=== PATIENT | female | born 1950 | race Caucasian/White ===

== ENCOUNTER 2016-04-25 17:52 | Emergency (ER) | payer OTHER ==
[2016-04-25 16:55] LABS: BASOPHILS 0.2 %; BASOPHILS ABSOLUTE 0.03 10/3/uL (0.0-0.16); EOSINOPHILS 4.3 %; EOSINOPHILS ABSOLUTE 0.52 10/3/uL (0.0-0.53); HEMATOCRIT 41.5 % (36.0-48.0); HEMOGLOBIN 14.2 g/dL (12.0-16.0); IMMATURE GRANULOCYTES 0.5 %; IMMATURE GRANULOCYTES ABSOLUTE 0.06 10/3/uL (0.0-0.11); LYMPHOCYTES 20.8 %; LYMPHOCYTES ABSOLUTE 2.51 10/3/uL (0.67-4.30); MEAN CORPUS HGB CONC 34.2 g/dL (32.0-36.0); MEAN CORPUSCULAR HEMOGLOB 31.1 pg (26.0-34.0); MEAN PLATELET VOLUME 10.6 fL (9.2-13.0); MONOCYTES 13.9 %; MONOCYTES ABSOLUTE 1.67 10/3/uL (0.21-1.20); NEUTROPHILS 60.3 %; NEUTROPHILS ABSOLUTE 7.25 10/3/uL (2.02-8.40); PLATELET COUNT 231 10/3/uL (150-400); RED CELL COUNT 4.57 10/6/uL (4.0-5.6)
[2016-04-25 16:56] LABS: MANUAL DIFF NO %; MEAN CORPUSCULAR VOLUME 90.8 fL (80-100)
[2016-04-25 17:21] LABS: A/G RATIO 0.9 (0.7-1.9); ALBUMIN 3.7 G/DL (3.5-5.0); CALCIUM, SERUM 9.5 MG/DL (8.5-10.4); CHLORIDE, SERUM 94 MMOL/L (96-112); CO2 (CARBON DIOXIDE) 26 MMOL/L (24-34); GLOBULIN 3.9 G/DL (2.5-4.1); POTASSIUM, SERUM 3.8 MMOL/L (3.5-5.3); SGOT(AST) 29 U/L (5-40); SGPT(ALT) 25 U/L (5-65); SODIUM, SERUM 133 MMOL/L (135-148); TOTAL PROTEIN 7.6 G/DL (6.0-8.5)
[2016-04-25 17:24] LABS: ALKALINE PHOSPHATASE 203 U/L (45-117); BUN (BLOOD UREA NITROGEN) 80 MG/DL (6-23); CREATININE 3.23 MG/DL (0.55-1.02); GFR AFRICAN AMERICAN 16 ML/MIN (>=60); GFR NON AFRICAN AMERICAN 14 ML/MIN (>=60); GLUCOSE, SERUM 93 MG/DL (60-99); TOTAL BILIRUBIN 1.7 MG/DL (0-1.2)
[~2016-04-25 17:52] MED LIST: ASAB PO; BROVANA15 MCG INH; C1 PO; COLCRYS0.6 MG PO; COUMADIN3 MG PO; COUMADIN4 MG PO; DEMA20 PO; DIGITEK0.125 MG PO; DSS PO; FESO4 PO; FLONASE NAS; FOLIC PO; HALF81 PO; HUMI PO; HYCODAN1 M1 PO; KDUR20 PO; KLOR-CON 1010 MEQ PO; KLOR-CON M1010 MEQ PO; KLOR-CON M2020 MEQ PO; KLOR-CON20 MEQ PO; L20 PO; L40 PO; LEVAQUIN750 MG PO; LOP100 PO; LOP25 PO; LOP50 PO; LORT7 PO; MEDROLPAK4 PO; MUCINEX600 MG PO; MULTIVITAMI1 PO; NEUR300 PO; NITROQUICK0.4 MG SL; NO HOME MEDS; OMNICEF300 PO; P10 PO; P20 PO; PCET PO; PEP20 PO; PRAVACHOL40 MG PO; PRILO PO; PROAIR HFA INH; PROTONIX PO; PROVENTSOL INH; PULRESP1 INH; REVATIO20 PO; SPIRO25 PO; STERAPDS12 PO; SYMBICORT 160/41 INH INH; TESSALON200 MG PO; VITAMIN B-121000 MC1 PO; Z100 PO; ZAROX2.5B PO; ZESTORETIC PO; ZESTORETIC1 TA1 PO; ZITH250 PO
== END 2016-04-25 19:11 | disposition home or self-care (01) ==
LOC: ER 17:52
PROVIDERS: Physician Assistant
DX: M54.42 Lumbago with sciatica, left side (principal); I10 Essential (primary) hypertension; Z86.73 Personal history of transient ischemic attack (TIA), and cerebral infarction without residual deficits; Z88.8 Allergy status to other drugs, medicaments and biological substances; Z79.899 Other long term (current) drug therapy; Z79.01 Long term (current) use of anticoagulants
CPT/HCPCS: 80053; 81001; 85025; 93005; 96374; 99284

== ENCOUNTER 2016-06-09 18:05 | Inpatient (IN) | payer OTHER ==
--- NOTE | ~2016-06-09 | CN ---
Consultation Report [facility] [address] [place]. [address] NAME: JOSEFA VALERIO : 46 STATUS : ADM IN PAT#: [id number] AGE: 65 ADM/REG DATE : 06/09/16 MR#: [id number] REPORT SERV DATE: 06/11/16 DICTATED BY: ALYSIA MACK DATE: 06/10/16 REPORT STATUS : Draft TRANSCRIBED BY: MODL DATE: 06/10/16 NEPHROLOGY CONSULTATION DATE OF CONSULTATION: 06/10/2016 REASON FOR CONSULTATION: Chronic kidney disease. HISTORY OF PRESENT ILLNESS: Mrs. Valerio is a very pleasant 65-year-old white female with past medical history of chronic kidney disease stage [address] Marquez in our practice. She has pulmonary hypertension as well as cardiac shunt. She was undergoing cardiac catheterization to evaluate this and actually had a stroke 2 years ago. Since that time, she has been on anticoagulation. She had an echocardiogram under the care of Dr. Davis and was found to have a large pericardial effusion without evidence of tamponade. She has been admitted for pericardial window placement which is being planned for tomorrow. She has chronic shortness of breath and edema requiring high-dose diuretics. She has had a persistent cough that has not responded to any kind of therapy recently. Baseline creatinine range is 2.5 to 3.0. She was admitted with a BUN and creatinine of 99 and 3.0. Her most recent potassium was 4.3. PAST MEDICAL HISTORY: 1. Chronic kidney disease, stage 4, followed by Dr. Oskar Marquez. 2. Atrial fibrillation. 3. Chronic edema. 4. Severe pulmonary hypertension. 5. Prior CVA. 6. Hypertension. 7. Depression. PAST SURGICAL HISTORY: 1. Coronary arteriogram. 2. Hysterectomy. 3. Cholecystectomy. 4. Hip replacement. 5. Tonsillectomy. 6. Appendectomy. FAMILY HISTORY: Significant for hypertension, myocardial infarction, dementia, breast cancer. ALLERGIES: ACETAMINOPHEN AND SILK TAPE. SOCIAL HISTORY: She does not smoke cigarettes or drink alcohol. REVIEW OF SYSTEMS: Consultation Report [place] [id number] [facility] [place]. [address] NAME: JOSEFA VALERIO : 46 STATUS : ADM IN PAT#: [id number] AGE: 65 ADM/REG DATE : 06/09/16 MR#: [id number] REPORT SERV DATE: 06/11/16 DICTATED BY: ALYSIA MACK DATE: 06/10/16 REPORT STATUS : Draft TRANSCRIBED BY: PEPE DATE: 06/10/16 All systems reviewed and negative excluding those mentioned and highlighted in history of present illness. HOME MEDICATIONS: 1. Albuterol two puffs p.r.n. 2. Allopurinol 100 mg b.i.d. 3. Symbicort two puffs daily. 4. Metolazone 2.5 mg, Sunday, Sunday, and Sunday. 5. Lopressor 50 mg b.i.d. 6. Potassium chloride 20 mEq every morning. 7. Potassium chloride 40 mEq at bedtime. 8. Pravastatin 40 mg daily. 9. Spironolactone 25 mg daily. 10.Torsemide 60 mg twice a day. 11.Coumadin 3 mg at bedtime. PHYSICAL EXAMINATION: VITAL SIGNS: Blood pressure 119/58, temperature 96.8, pulse 78, respiratory rate 18, oxygen saturation 91%. GENERAL: This is a chronically ill, elderly white female, resting comfortably, in no acute distress. HEENT: Normocephalic, atraumatic. Oropharynx clear. No exudate. NECK: Supple. No JVD. No thyromegaly. No carotid bruits. Trachea midline. No stridor. CARDIOVASCULAR: Regular rate and rhythm. S1, S2 without rubs or gallops. Soft systolic ejection murmur. Irregular rhythm. RESPIRATORY: Coarse breath sounds. No wheeze, rhonchi, tachypnea, or accessory muscles in use. GI: Abdomen soft, nontender, nondistended. No hepatosplenomegaly appreciated. EXTREMITIES: No cyanosis, clubbing, or edema. Distal pulses 2+ symmetrically intact. SKIN: No rash or breakdown. Normal turgor. NEUROLOGIC: Cranial nerves II through XII grossly intact. Motor sensory examinations within normal limits. LABS AND DIAGNOSTIC DATA: Urinalysis shows specific gravity 1.009, pH 7.0. Serum potassium 4.3. Magnesium 1.9. INR 1.5. Sodium 131, potassium 3.0, chloride 90, bicarb 26, BUN 99, creatinine 3.03, glucose 115. ASSESSMENT: 1. Chronic kidney disease stage 4, slightly above baseline with high BUN to creatinine ratio-may be prerenal. 2. Chronic hyponatremia. 3. Severe pulmonary hypertension. 4. Atrial septal defect, unable to be surgically closed. 5. Large pericardial effusion. Consultation Report [address] [place]. [address] NAME: JOSEFA VALERIO : 46 STATUS : ADM IN PAT#: [id number] AGE: 65 ADM/REG DATE : 06/09/16 MR#: [id number] REPORT SERV DATE: 06/11/16 DICTATED BY: ALYSIA MACK DATE: 06/10/16 REPORT STATUS : Draft TRANSCRIBED BY: PEPE DATE: 06/10/16 6. Subacute cough? related to effusion. 7. Hypertension. PLAN: 1. Cardiothoracic surgery is planning on pericardial window tomorrow. 2. She appears somewhat dry with high BUN to creatinine ratio. We will place her diuretics temporarily on hold perioperatively. 3. Check labs in the morning. 4. Group to follow. Thank you for this consultation. STEFANIA/PEPE Alysia Mack M.D. / [id number] CC: Yumiko Bradshaw N.P.
--- NOTE | ~2016-06-09 | OP ---
Record Of Operation [facility] [address] [place]. [address] NAME: JOSEFA MARTINEZ : 46 STATUS : ADM IN [facility]#: [id number] AGE: 65 ADM/REG DATE : 06/09/16 MR#: [id number] REPORT SERV DATE: 06/11/16 DICTATED BY: HUMPHREY MONTGOMERY DATE: 06/11/16 REPORT STATUS : Draft TRANSCRIBED BY: MODL DATE: 06/11/16 DATE OF PROCEDURE: 06/11/2016 PREOPERATIVE DIAGNOSIS: Large pericardial effusion, unknown etiology. POSTOPERATIVE DIAGNOSIS: Large pericardial effusion, unknown etiology, with 700 mL of serous fluid in the pericardial space. OPERATIVE PROCEDURE: Subxiphoid drainage of pericardial effusion with pericardial biopsy. OPERATIVE SURGEON: Humphrey Montgomery M.D. ANESTHESIA: General endotracheal anesthesia, AA. CHEST TUBES PLACED: A 36-Haitian right angle chest tube in the pericardial space. OPERATIVE FINDINGS: The patient had 700 mL of serous pericardial fluid with no sign of physiologic tamponade. There were no other abnormalities noted. DESCRIPTION OF PROCEDURE: The patient was taken to the operating room and placed in the supine position. Anesthesia was obtained. The patient was prepped and draped in the usual fashion. Incision was made over the xiphoid process. The linea alba was divided. The xiphoid process was excised. The pericardium was identified. Pericardium was opened. 700 mL of serous fluid was aspirated. This was sent for cytology as well as microbiology. Pericardial biopsy was taken and sent for permanent pathology. The space was irrigated with antibiotic saline. No other pathology was noted. The fluid was clear and nonbloody. No infection was noted. A 36-Haitian right angle chest tube was placed in the pericardial space. The linea alba was approximated with running #1 Stratafix suture, the subcutaneous tissues were closed with running 2-0 Stratafix suture, and the skin was approximated with running 3-0 Stratafix suture. Sterile dressings were applied. The patient tolerated the procedure well and was extubated in the operating room and taken to recovery in stable condition. LETI/PEPE Humphrey Montgomery M.D. / [id number] CC: Yumiko Bradshaw N.P.
--- NOTE | ~2016-06-09 | HP ---
History And Physical [id number] [place]. [address] NAME: JOSEFA MARTINEZ : 46 STATUS : ADM IN [facility]#: [id number] AGE: 65 ADM/REG DATE : 06/09/16 MR#: [id number] REPORT SERV DATE: 06/10/16 DICTATED BY: KRISTINE BRIGHT DATE: 06/10/16 REPORT STATUS : Draft TRANSCRIBED BY: MODClark DATE: 06/10/16 DATE OF ADMISSION: 06/09/2016 HISTORY OF PRESENT ILLNESS: This 65-year-old white female, ex-smoker (quit in 1984) was admitted with a large pericardial effusion noted on her echocardiogram. Back in 2016, she was admitted and had a moderate effusion at that time. This lady has pulmonary hypertension and during a cardiac catheterization to evaluate a shunt disorder (questionable PFO versus VSD), she developed a stroke requiring clot extraction. She was since been on warfarin therapy with an INR of 3.7 on admission. She is chronically short of breath and has occasional edema. She states that, of late she had an upper respiratory tract infection with increased cough and runny nose, etc. She is not known to be diabetic, but is hypertensive. MEDICATIONS: At home have included albuterol, allopurinol, Symbicort, metolazone, metoprolol, potassium, pravastatin, spironolactone, torsemide, and her warfarin. ALLERGIES: SHE IS INTOLERANT TO HYMENOPTERA STINGS, AND ACETAMINOPHEN WELL SILK TAPE. FAMILY HISTORY: Positive for myocardial infarction. PREVIOUS OPERATIONS: Include hip surgeries, cholecystectomy, tonsillectomy, appendectomy, and partial hysterectomy. SOCIAL HISTORY: Her family is with her at this time including great grandchild. She is not using tobacco or alcohol. Echocardiogram ordered by Dr. Davis (her primary parts salesman) recently showed large pericardial effusion with normal ejection fraction, but with pulmonary hypertension in the 60 mmHg range. No shunt was reported. She sees Dr. Marquez, as her artillery specialist with chronic renal insufficiency. Her BUN and creatinine are 99 and 3.03 mg percent respectively this admission. She has chronic atrial fibrillation as her rhythm chronically. There is no angina pectoris, syncope, near syncope, new TIA, or new stroke symptoms. REVIEW OF SYSTEMS: Otherwise, all negative. PHYSICAL EXAMINATION: VITAL SIGNS: Blood pressure is 110/60. HEENT: Head is ruborous and somewhat puffy, but no periorbital edema seen. Eyes are PERRLA. Nose had no epistaxis. SKIN: Clear of ulcerations. NECK: Supple. CHEST: Remarkably clear. HEART: Had an S1, S2 prabhakar and I hear no S3 gallop. There is a near holosystolic grade 1/6 systolic murmur heard at the lower left sternal border. There is no pericardial rubs History And Physical [address] [place]. [address] NAME: JOSEFA MARTINEZ : 46 STATUS : ADM IN [facility]#: [id number] AGE: 65 ADM/REG DATE : 06/09/16 MR#: [id number] REPORT SERV DATE: 06/10/16 DICTATED BY: KRISTINE BRIGHT DATE: 06/10/16 REPORT STATUS : Draft TRANSCRIBED BY: MODL DATE: 06/10/16 heard. ABDOMEN: A bit overweight. EXTREMITIES: Had no clubbing, edema, or cyanosis. NEUROLOGIC: Intact. She is oriented to time, place, and person. CLINICAL IMPRESSION: 1. Large pericardial effusion with no palpable paradox. 2. Pulmonary hypertension - family reports shunt reversal and pulmonary hypertension discovered on a cardiac catheterization at [place] two years ago, followed by a stroke requiring clot extraction. 3. Atrial fibrillation. 4. History of hypertension. 5. Overweight. 6. Chronic renal insufficiency - severe. RECOMMENDATIONS: 1. Thoracic surgery has been consulted. 2. Warfarin is being reversed such that the pericardial surgery/window can be done. 3. She will need to be back on anticoagulants after pericardial surgery is completed. 4. Dr. Davis to follow her when he returns to call. Home medications are continued except for the warfarin. RB/PEPE Kristine Bright M.D. / [id number] CC: Yumiko Bradshaw N.P.
--- NOTE | ~2016-06-09 | DS ---
Discharge Summary [facility] [address] [facility] [place]. [address] NAME: JOSEFA MARTINEZ : 46 STATUS : DIS IN PAT#: [id number] AGE: 65 ADM/REG DATE : 06/09/16 MR#: [id number] REPORT SERV DATE: 06/23/16 DICTATED BY: HUMPHREY ALLISON DATE: 06/22/16 REPORT STATUS : Draft TRANSCRIBED BY: MODClark DATE: 06/22/16 Data Collection from hospitalization DISCHARGE DIAGNOSES: 1. Large pericardial effusion of unknown etiology with 700 mL serous fluid in the pericardial space. 2. Hypertension. 3. Diabetes mellitus. 4. History of renal insufficiency. 5. Chronic obstructive pulmonary disease. 6. Former tobacco use. CONSULTATIONS: 1. Dawit Bright M.D. 2. Alysia Diaz M.D. PROCEDURES PERFORMED: Subxiphoid drainage of pericardial effusion with pericardial biopsy on 06/11/2016. PATHOLOGY: Pericardial fluid "effusion" aspiration (smear, ThinPrep, and cell block) - no malignant cells identified, no significant acute inflammation. Pericardium biopsy - benign pericardial tissue, no malignancy or significant acute inflammation. MEDICATIONS: ProAir two puffs via inhaler as needed; Zyloprim 100 mg twice a day; Symbicort two puffs via inhaler daily as needed; [place] 10/325 half to one tablet every four hours as needed; Zaroxolyn 2.5 mg on Mondays, Wednesdays, and Fridays; Lopressor 50 mg twice a day; [place] 20 mEq every morning and 40 mEq at bedtime; Pravachol 40 mg daily; Aldactone 25 mg daily; Demadex 60 mg twice a day; ascorbic acid 1000 mg twice a day, and Coumadin 3 mg at bedtime. CONDITION AT DISCHARGE: Stable. DISPOSITION: The patient was discharged home on a low-sodium, low-cholesterol, cardiac diet with activities as instructed. She would follow up with Andres Rodríguez on 06/15/2016 and 06/20/2016. She would follow up with Dr. Teo Daivs on 06/28/2016. She would follow up at [facility] for INR check on 06/16/2016. HOSPITAL COURSE: This is a 65-year-old female who is an ex-smoker who presented with a large pericardial effusion noted on her echocardiogram. In 2016, she had been admitted and had a moderate effusion at that time. This patient has pulmonary hypertension and during a cardiac catheterization to evaluate a shunt disorder, she developed a stroke requiring clot extraction. She had since been on warfarin therapy with an INR level of 3.7. She is chronically short of breath and has occasional edema. She said that of late she had an upper respiratory tract infection with increasing cough and runny nose, etc. She was not known to be a diabetic diet, but is hypertensive. She was admitted to the hospital at this time for further evaluation and treatment. Upon admission, warfarin was being reversed, such that the pericardial surgery/window could Discharge Summary [place] [id number] [facility]. [address] NAME: JOSEFA MARTINEZ : 46 STATUS : DIS IN PAT#: [id number] AGE: 65 ADM/REG DATE : 06/09/16 MR#: [id number] REPORT SERV DATE: 06/23/16 DICTATED BY: HUMPHREY ALLISON DATE: 06/22/16 REPORT STATUS : Draft TRANSCRIBED BY: PEPE DATE: 06/22/16 be performed. She would need to be back on anticoagulant after pericardial surgery was completed. The following day, the patient was seen by Dr. Alysia Diaz regarding chronic kidney disease. Plans were being made for pericardial window placement to be performed. Baseline creatinine ranges 2.5 and 3.0. She was admitted at this time with a BUN and creatinine of 99 and 3.0. Her most recent potassium was 4.3. She also has chronic hyponatremia. She appeared somewhat dry. Diuretics were placed on hold temporarily. Labs would be checked the following morning. The patient was seen by Dr. Dawit Bright. The patient has chronic atrial fibrillation as her rhythm chronically. The patient has a large pericardial effusion with no palpable paradox. She has severe chronic renal insufficiency. Plans were being made to proceed with surgical intervention. On 06/11/2016, she was taken to the operating room where she underwent the above-mentioned procedure. She tolerated this well, and there were no complications. Postoperatively, she was sore. Coumadin was given. Blood cultures were negative. On postop day #1, she said she was feeling better. She was alert and cooperative. Discharge planning was performed. Creatinine level was 2.46. She had no shortness of breath. On 06/13/2016, she had some pain with coughing. Her breathing was better. Creatinine was back to baseline at 2.59. Chest tube was removed. Discharge instructions were given. Due to her improved and stable condition, she was discharged home with the above-stated instructions. Information collected by: Madelaine Vargas I submit the above information as my discharge summary. STEPHANY/PEPE Humphrey Allison M.D. / [id number] CC: Yumiko Bradshaw N.P. Robert Berglund, M.D. Lindsay C Crawford, M.D.
--- NOTE | ~2016-06-09 | CN ---
Consultation Report [place] [id number] [facility] [place]. [address] NAME: JOSEFA MARTINEZ : 46 STATUS : [facility] [id number] AGE: 65 ADM/REG DATE : 06/09/16 MR#: [id number] REPORT SERV DATE: 06/11/16 DICTATED BY: HUMPHREY ALLISON DATE: 06/11/16 REPORT STATUS : Draft TRANSCRIBED BY: MODL DATE: 06/11/16 DATE OF CONSULTATION: 06/11/2016 PERTINENT HISTORY: The patient is a 65-year-old female with known history of cardiac dysrhythmias as well as renal insufficiency who presented to the hospital with shortness of breath. CT scan of the chest demonstrated pericardial fluid. Echocardiogram demonstrated pericardial fluid with no definite sign of tamponade. Cardiac consultation was obtained for drainage of pericardial fluid. PAST MEDICAL HISTORY: Significant for no previous open cardiac or thoracic surgery. She has history of renal insufficiency, hypertension, COPD, and diabetes mellitus. SOCIAL HISTORY: Negative for tobacco and ethanol use. FAMILY HISTORY: Noncontributory. REVIEW OF SYSTEMS: Significant only for the shortness of breath and increased fatigability. She denied any angina and denied any neurologic symptoms. PHYSICAL EXAMINATION: VITAL SIGNS: The patient is afebrile. Blood pressure 140/70, heart rate was 80. She is in no acute distress. CONSTITUTIONALLY: She is well developed and well nourished. HEENT: Showed her sclerae to be clear. NECK: Showed no bruits. RESPIRATORY: Showed breath sounds bilaterally without wheezes, rales, or rhonchi. CARDIAC: Showed what appeared to be a regular rhythm with no obvious murmur. Distant heart sounds. GI: Showed abdomen is soft and nontender, without masses. VASCULAR: Showed full pulses. SKIN: Showed no rash. NEUROLOGIC: Intact. PSYCHIATRIC: Intact. LABORATORY DATA: The echocardiogram demonstrated large pericardial effusion. No loculation evident. IMPRESSION: At this time is pericardial effusion with no signs of tamponade, but worsening symptoms of shortness of breath. The plan is to proceed with subxiphoid drainage of pericardial effusion, send fluid off for cytology as well as culture and also send pericardial biopsy off. Consultation Report [place] [id number] [facility] [place]. [address] NAME: JOSEFA MARTINEZ : 46 STATUS : ADM IN PAT#: [id number] AGE: 65 ADM/REG DATE : 06/09/16 MR#: [id number] REPORT SERV DATE: 06/11/16 DICTATED BY: HUMPHREY ALLISON DATE: 06/11/16 REPORT STATUS : Draft TRANSCRIBED BY: PEPE DATE: 06/11/16 LETI/PEPE Humphrey Allison M.D. / [id number] CC: Yumiko Bradshaw N.P.
[2016-06-09 20:15] LABS: WBC (NOT ORDERED) (RFLEX) 0 (0-5)
[2016-06-09 20:25] LABS: ASCORBIC ACID (UR NOT ORDER) NEG (NEG); BILIRUBIN, URINE NEGATIVE (NEG); ER URINALYSIS TAT 0 Hrs 13 Mins; KETONE, URINE NEGATIVE (NEG); LEUKOCYTE ESTERASE(NOT OR NEG (NEG); NITRITE (URINE) NEG (NEG)
[2016-06-09 21:13] LABS: BASOPHILS 0.1 %; BASOPHILS ABSOLUTE 0.01 10/3/uL (0.0-0.16); EOSINOPHILS 1.1 %; EOSINOPHILS ABSOLUTE 0.16 10/3/uL (0.0-0.53); ER CBC TAT 0 Hrs 05 Mins; HEMATOCRIT 43.2 % (36.0-48.0); HEMOGLOBIN 14.8 g/dL (12.0-16.0); IMMATURE GRANULOCYTES 0.4 %; IMMATURE GRANULOCYTES ABSOLUTE 0.05 10/3/uL (0.0-0.11); LYMPHOCYTES ABSOLUTE 1.83 10/3/uL (0.67-4.30); MANUAL DIFF NO %; MEAN CORPUS HGB CONC 34.3 g/dL (32.0-36.0); MEAN CORPUSCULAR HEMOGLOB 31.6 pg (26.0-34.0); MEAN CORPUSCULAR VOLUME 92.3 fL (80-100); MEAN PLATELET VOLUME 9.7 fL (9.2-13.0); MONOCYTES 13.1 %; MONOCYTES ABSOLUTE 1.84 10/3/uL (0.21-1.20); NEUTROPHILS 72.3 %; PLATELET COUNT 209 10/3/uL (150-400); RBC DISTRIBUTION WIDTH 15.8 % (12.0-16.0); RED CELL COUNT 4.68 10/6/uL (4.0-5.6); WHITE BLOOD CELLS 14.1 10/3/uL (4.5-10.5)
[2016-06-09 21:29] LABS: BUN (BLOOD UREA NITROGEN) 99 MG/DL (6-23); CALCIUM, SERUM 10.4 MG/DL (8.5-10.4); CHEST PAIN PROFILE TAT 0 Hrs 21 Mins; CHLORIDE, SERUM 92 MMOL/L (96-112); CO2 (CARBON DIOXIDE) 26 MMOL/L (24-34); CREATININE 3.03 MG/DL (0.55-1.02); GFR AFRICAN AMERICAN 18 ML/MIN (>=60); GFR NON AFRICAN AMERICAN 15 ML/MIN (>=60); GLUCOSE, SERUM 115 MG/DL (60-99); SODIUM, SERUM 131 MMOL/L (135-148); TROPONIN I 0.07 NG/ML (<0.05)
[2016-06-09 21:55] LABS: INTERNATIONAL NORMAL RATI 3.1 UNITS (-); PARTIAL THROMBO TIME 40.5 SEC (22.5-37.2)
[2016-06-09] MEDS ORDERED: LOP50 PO (22:04)
[2016-06-09] MEDS ORDERED: COUMADIN3 MG PO (22:05)
[2016-06-09] MEDS ORDERED: Z100 PO (22:05)
[2016-06-09] MEDS ORDERED: PROAIR HFA INH (22:05)
[2016-06-09] MEDS ORDERED: PRAVACHOL40 MG PO (22:05)
[2016-06-09] MEDS ORDERED: DEMA20 PO (22:06)
[2016-06-09] MEDS ORDERED: ZAROX2.5B PO (22:06)
[2016-06-09] MEDS ORDERED: KDUR20 PO ×2 (22:07)
[2016-06-09] MEDS ORDERED: SPIRO25 PO (22:07)
[2016-06-09] MEDS ORDERED: SYMBICORT 160/41 INH INH (22:11)
[2016-06-10 12:55] LABS: INTERNATIONAL NORMAL RATI 1.5 UNITS (-)
[2016-06-10 13:00] LABS: PROTIME (NOT ORD) 18.1 SEC (12.0-14.5)
[2016-06-10 18:39] LABS: POTASSIUM, SERUM 4.3 MMOL/L (3.5-5.3)
[2016-06-10 21:58] LABS: ASCORBIC ACID (UR NOT ORDER) NEG (NEG); BILIRUBIN, URINE NEGATIVE (NEG); KETONE, URINE NEGATIVE (NEG); LEUKOCYTE ESTERASE(NOT OR TRACE (NEG); WBC (NOT ORDERED) (RFLEX) < 1 (0-5)
[2016-06-11 06:19] LABS: BASOPHILS 0.1 %; BASOPHILS ABSOLUTE 0.01 10/3/uL (0.0-0.16); EOSINOPHILS 2.6 %; EOSINOPHILS ABSOLUTE 0.27 10/3/uL (0.0-0.53); HEMATOCRIT 39.5 % (36.0-48.0); HEMOGLOBIN 13.4 g/dL (12.0-16.0); IMMATURE GRANULOCYTES 0.5 %; IMMATURE GRANULOCYTES ABSOLUTE 0.05 10/3/uL (0.0-0.11); LYMPHOCYTES 13.3 %; LYMPHOCYTES ABSOLUTE 1.38 10/3/uL (0.67-4.30); MEAN CORPUS HGB CONC 33.9 g/dL (32.0-36.0); MEAN CORPUSCULAR HEMOGLOB 31.6 pg (26.0-34.0); MEAN CORPUSCULAR VOLUME 93.2 fL (80-100); MEAN PLATELET VOLUME 9.9 fL (9.2-13.0); MONOCYTES 10.1 %; MONOCYTES ABSOLUTE 1.05 10/3/uL (0.21-1.20); NEUTROPHILS 73.4 %; NEUTROPHILS ABSOLUTE 7.63 10/3/uL (2.02-8.40); PLATELET COUNT 180 10/3/uL (150-400); RBC DISTRIBUTION WIDTH 15.9 % (12.0-16.0); RED CELL COUNT 4.24 10/6/uL (4.0-5.6); WHITE BLOOD CELLS 10.4 10/3/uL (4.5-10.5)
[2016-06-11 06:20] LABS: MANUAL DIFF NO %
[2016-06-11 06:23] LABS: INTERNATIONAL NORMAL RATI 1.3 UNITS (-); PARTIAL THROMBO TIME 29.8 SEC (22.5-37.2); PROTIME (NOT ORD) 16.5 SEC (12.0-14.5)
[2016-06-11 06:31] LABS: ALBUMIN 3.7 G/DL (3.5-5.0); CALCIUM, SERUM 10.1 MG/DL (8.5-10.4); CHLORIDE, SERUM 97 MMOL/L (96-112); CO2 (CARBON DIOXIDE) 26 MMOL/L (24-34); CREATININE 2.68 MG/DL (0.55-1.02); GFR AFRICAN AMERICAN 21 ML/MIN (>=60); GFR NON AFRICAN AMERICAN 18 ML/MIN (>=60); GLUCOSE, SERUM 129 MG/DL (60-99); PHOSPHORUS, SERUM 2.7 MG/DL (2.5-4.5); POTASSIUM, SERUM 3.8 MMOL/L (3.5-5.3); SODIUM, SERUM 133 MMOL/L (135-148)
[2016-06-11 06:32] LABS: BUN (BLOOD UREA NITROGEN) 102 MG/DL (6-23)
[2016-06-11 16:29] LABS: HEMATOCRIT 41.1 % (36.0-48.0); HEMOGLOBIN 13.9 g/dL (12.0-16.0); MEAN CORPUS HGB CONC 33.8 g/dL (32.0-36.0); MEAN CORPUSCULAR HEMOGLOB 31.8 pg (26.0-34.0); MEAN CORPUSCULAR VOLUME 94.1 fL (80-100); MEAN PLATELET VOLUME 10.1 fL (9.2-13.0); PLATELET COUNT 169 10/3/uL (150-400); RBC DISTRIBUTION WIDTH 15.9 % (12.0-16.0); RED CELL COUNT 4.37 10/6/uL (4.0-5.6); WHITE BLOOD CELLS 18.8 10/3/uL (4.5-10.5)
[2016-06-11 16:30] LABS: CALCIUM, SERUM 10.1 MG/DL (8.5-10.4); CHLORIDE, SERUM 97 MMOL/L (96-112); CO2 (CARBON DIOXIDE) 29 MMOL/L (24-34); CREATININE 2.44 MG/DL (0.55-1.02); GFR AFRICAN AMERICAN 23 ML/MIN (>=60); GFR NON AFRICAN AMERICAN 20 ML/MIN (>=60); GLUCOSE, SERUM 141 MG/DL (60-99); MANUAL DIFF YES %; SODIUM, SERUM 135 MMOL/L (135-148)
[2016-06-11 16:31] LABS: BUN (BLOOD UREA NITROGEN) 94 MG/DL (6-23); POTASSIUM, SERUM 3.5 MMOL/L (3.5-5.3)
[2016-06-11 16:49] LABS: LYMPHOCYTES 7 %; LYMPHOCYTES ABSOLUTE (CALC) 1.32 10/3/uL (0.67-4.30); MONOCYTES 10 %; MONOCYTES ABSOLUTE (CALC) 1.88 10/3/uL (0.21-1.20); SEGMENTED NEUTROPHIL (0) 83 %; TOTAL NUCLEATED CELLS 100
[2016-06-11 16:50] LABS: PLATELET ESTIMATE ADQ (ADEQUATE)
[2016-06-11 16:51] LABS: RBC MORPHOLOGY NORM (NORMAL)
[2016-06-12 04:25] LABS: HEMATOCRIT 40.9 % (36.0-48.0); HEMOGLOBIN 13.9 g/dL (12.0-16.0); MEAN CORPUSCULAR HEMOGLOB 32.2 pg (26.0-34.0); MEAN CORPUSCULAR VOLUME 94.7 fL (80-100); MEAN PLATELET VOLUME 11.2 fL (9.2-13.0); PLATELET COUNT 183 10/3/uL (150-400); RED CELL COUNT 4.32 10/6/uL (4.0-5.6)
[2016-06-12 04:26] LABS: MANUAL DIFF YES %
[2016-06-12 04:38] LABS: ALBUMIN 3.3 G/DL (3.5-5.0); BUN (BLOOD UREA NITROGEN) 91 MG/DL (6-23); CALCIUM, SERUM 10.5 MG/DL (8.5-10.4); CHLORIDE, SERUM 97 MMOL/L (96-112); CO2 (CARBON DIOXIDE) 28 MMOL/L (24-34); CREATININE 2.46 MG/DL (0.55-1.02); GFR AFRICAN AMERICAN 23 ML/MIN (>=60); GFR NON AFRICAN AMERICAN 20 ML/MIN (>=60); GLUCOSE, SERUM 160 MG/DL (60-99); PHOSPHORUS, SERUM 3.3 MG/DL (2.5-4.5); POTASSIUM, SERUM 4.1 MMOL/L (3.5-5.3); SODIUM, SERUM 134 MMOL/L (135-148)
[2016-06-12 04:57] LABS: LYMPHOCYTES 1 %; LYMPHOCYTES ABSOLUTE (CALC) 0.18 10/3/uL (0.67-4.30); MONOCYTES 7 %; MONOCYTES ABSOLUTE (CALC) 1.26 10/3/uL (0.21-1.20); NEUTROPHILS ABSOLUTE (CALC) 16.56 10/3/uL (2.02-8.40); SEGMENTED NEUTROPHIL (0) 92 %; TOTAL NUCLEATED CELLS 100
[2016-06-12 04:58] LABS: PLATELET ESTIMATE ADQ (ADEQUATE); RBC MORPHOLOGY NORM (NORMAL)
[2016-06-13 06:42] LABS: INTERNATIONAL NORMAL RATI 2.1 UNITS (-)
[2016-06-13 06:44] LABS: PROTIME (NOT ORD) 23.5 SEC (12.0-14.5)
[2016-06-13 06:46] LABS: ALBUMIN 3.1 G/DL (3.5-5.0); BUN (BLOOD UREA NITROGEN) 92 MG/DL (6-23); CALCIUM, SERUM 10.6 MG/DL (8.5-10.4); CHLORIDE, SERUM 97 MMOL/L (96-112); CO2 (CARBON DIOXIDE) 24 MMOL/L (24-34); CREATININE 2.59 MG/DL (0.55-1.02); GFR AFRICAN AMERICAN 21 ML/MIN (>=60); GFR NON AFRICAN AMERICAN 18 ML/MIN (>=60); GLUCOSE, SERUM 125 MG/DL (60-99); PHOSPHORUS, SERUM 2.7 MG/DL (2.5-4.5); SODIUM, SERUM 132 MMOL/L (135-148)
[2016-06-13] MEDS ORDERED: ASCORBIC ACID PO (12:35)
[2016-06-13] MEDS ORDERED: NORCO1 TAB PO (12:36)
== END 2016-06-13 16:51 | disposition home or self-care (01) | DRG 271 ==
LOC: ER 18:05 → 5NO 21:06
PROVIDERS: Internal Medicine Cardiovascular Disease; Internal Medicine Interventional Cardiology; Internal Medicine Nephrology; Nurse Practitioner; Thoracic Surgery (Cardiothoracic Vascular Surgery)
PROC: 0W9D00Z Drainage of Pericardial Cavity with Drainage Device, Open Approach (ICD-10-PCS; principal; 2016-06-11 08:45)
DX: I31.3 Pericardial effusion (noninflammatory) (principal); N18.4 Chronic kidney disease, stage 4 (severe); I27.2 Other secondary pulmonary hypertension; Q21.1 Atrial septal defect; I12.9 Hypertensive chronic kidney disease with stage 1 through stage 4 chronic kidney disease, or unspecified chronic kidney disease; I48.91 Unspecified atrial fibrillation; Z86.73 Personal history of transient ischemic attack (TIA), and cerebral infarction without residual deficits
CPT/HCPCS: 36415; 71010; 71020; 80048; 80069; 81001; 82962; 83735; 83880; 84132; 84484; 85025; 85610; 85730; 86850; 86900; 86901; 86920; 87015; 87040; 87070; 87075; 87102; 87116; 87205; 88112; 88305; 93005; 94640; 99285; A9270-GY; C8929; J0690; J2250; J2270; J2405; J2710; J3010; J3430; P9059; Q9957

== ENCOUNTER 2016-06-15 20:44 | Emergency (ER) | payer OTHER ==
[2016-06-15 20:29] LABS: BASOPHILS 0.1 %; BASOPHILS ABSOLUTE 0.01 10/3/uL (0.0-0.16); EOSINOPHILS 5.5 %; ER CBC TAT 0 Hrs 07 Mins; HEMATOCRIT 38.6 % (36.0-48.0); HEMOGLOBIN 12.9 g/dL (12.0-16.0); IMMATURE GRANULOCYTES 0.5 %; IMMATURE GRANULOCYTES ABSOLUTE 0.06 10/3/uL (0.0-0.11); LYMPHOCYTES 7.3 %; LYMPHOCYTES ABSOLUTE 0.93 10/3/uL (0.67-4.30); MEAN CORPUS HGB CONC 33.4 g/dL (32.0-36.0); MEAN CORPUSCULAR HEMOGLOB 31.3 pg (26.0-34.0); MEAN CORPUSCULAR VOLUME 93.7 fL (80-100); MEAN PLATELET VOLUME 11.2 fL (9.2-13.0); MONOCYTES 13.2 %; MONOCYTES ABSOLUTE 1.69 10/3/uL (0.21-1.20); NEUTROPHILS 73.4 %; NEUTROPHILS ABSOLUTE 9.39 10/3/uL (2.02-8.40); NUCLEATED RED BLOOD CELLS 0.1 /100WBC (0-0); PLATELET COUNT 184 10/3/uL (150-400); RBC DISTRIBUTION WIDTH 15.9 % (12.0-16.0); RED CELL COUNT 4.12 10/6/uL (4.0-5.6); WHITE BLOOD CELLS 12.8 10/3/uL (4.5-10.5)
[2016-06-15 20:30] LABS: ASCORBIC ACID (UR NOT ORDER) 40 (NEG); BILIRUBIN, URINE NEGATIVE (NEG); ER URINALYSIS TAT 0 Hrs 09 Mins; KETONE, URINE NEGATIVE (NEG); LEUKOCYTE ESTERASE(NOT OR TRACE (NEG); NITRITE (URINE) NEG (NEG); WBC (NOT ORDERED) (RFLEX) 3 (0-5)
[2016-06-15 20:30] LABS: MANUAL DIFF NO %
[2016-06-15 20:36] LABS: PROTIME (NOT ORD) 22.5 SEC (12.0-14.5)
[2016-06-15 20:42] LABS: A/G RATIO 0.8 (0.7-1.9); ALBUMIN 3.1 G/DL (3.5-5.0); ALKALINE PHOSPHATASE 182 U/L (45-117); BUN (BLOOD UREA NITROGEN) 92 MG/DL (6-23); CALCIUM, SERUM 10.2 MG/DL (8.5-10.4); CHLORIDE, SERUM 99 MMOL/L (96-112); CO2 (CARBON DIOXIDE) 25 MMOL/L (24-34); CREATININE 2.43 MG/DL (0.55-1.02); GFR AFRICAN AMERICAN 23 ML/MIN (>=60); GFR NON AFRICAN AMERICAN 20 ML/MIN (>=60); GLOBULIN 3.9 G/DL (2.5-4.1); GLUCOSE, SERUM 121 MG/DL (60-99); POTASSIUM, SERUM 3.8 MMOL/L (3.5-5.3); SGOT(AST) 35 U/L (5-40); SGPT(ALT) 13 U/L (5-65); SODIUM, SERUM 135 MMOL/L (135-148); TOTAL BILIRUBIN 2.7 MG/DL (0-1.2)
[~2016-06-15 20:44] MED LIST changes: +ASCORBIC ACID PO; +NORCO1 TAB PO
== END 2016-06-15 21:39 | disposition home or self-care (01) ==
LOC: ER 20:44
PROVIDERS: Nurse Practitioner
DX: N93.8 Other specified abnormal uterine and vaginal bleeding (principal); J45.909 Unspecified asthma, uncomplicated; I12.9 Hypertensive chronic kidney disease with stage 1 through stage 4 chronic kidney disease, or unspecified chronic kidney disease; N18.9 Chronic kidney disease, unspecified; K21.9 Gastro-esophageal reflux disease without esophagitis; E78.5 Hyperlipidemia, unspecified; Z87.891 Personal history of nicotine dependence; Z86.73 Personal history of transient ischemic attack (TIA), and cerebral infarction without residual deficits; Z91.038 Other insect allergy status; Z79.01 Long term (current) use of anticoagulants; Z79.899 Other long term (current) drug therapy
CPT/HCPCS: 36415; 80053; 81001; 85025; 85610; 85730; 86850; 86900; 86901; 99284